=== PATIENT | female | born 1945 | race American Indian/Alaskan Native ===

== ENCOUNTER 2016-06-25 17:27 | Inpatient (IN) | payer MEDICARE, OTHER ==
[2016-06-25 17:53] LABS: CHLORIDE,CL 94 mmol/L (98-107); SODIUM,NA 132 mmol/L (136-145)
--- NOTE | 2016-06-25 18:38 | EDM.PDOC ---
ED HPI GENERAL MEDICAL PROBLEM - General Chief Complaint: General Stated Complaint: nausea, vomitting, diarrhea from chemotherapy Time Seen by Provider: 06/25/16 18:00 Source of Information: Reports: Patient History Limitations: Reports: No limitations - History of Present Illness INITIAL COMMENTS - FREE TEXT/NARRATIVE: The patient presents with complaint of nausea, vomiting, and diarrhea for the past few days following completion of recent chemotherapy regimen. She is being treated with chemotherapy for breast cancer and her oncologist is Dr. Machado from [facility] in [place]. She is receiving a regimen of 4 agents including Taxol and Herceptin and she is unsure of the remainder of the regimen. She has received a total of 6 cycles which began in early February of 2016. The initial diagnosis was made in January of 2016. She completing the course of chemotherapy with planned surgical resection and radiation following. She reports multiple episodes of vomiting daily until today and denies vomiting today. She has had multiple episodes of diarrhea including a few watery episodes today but denies hematochezia or melena. She has had a difficult time keeping fluid down. She called a nurse at [facility] who advised her to come in for evaluation. She denies fever, chills, bodyaches, cough, chest congestion, chest pain, shortness of breath, or dysuria. She has a few sores in her mouth from vomiting but denies other symptoms or complaints. - Related Data Allergies Allergy/AdvReac Type Severity Reaction Status Date / Time capsaicin Allergy Rash Verified 06/25/16 17:50 [From [employer] Pain Relieving Rub] menthol Allergy Rash Verified 06/25/16 17:50 [From [employer] Pain Relieving Rub] methyl nicotinate Allergy Rash Verified 06/25/16 17:50 [From [employer] Pain Relieving Rub] methyl salicylate Allergy Rash Verified 06/25/16 17:50 [From [employer] Pain Relieving Rub] Home Meds: Home Meds Albuterol [Ventolin HFA] 1 puff PO ASDIRECTED PRN 01/06/15 [History] Aspirin [Halfprin] 81 mg PO DAILY 01/06/15 [History] Calcium Carbonate/Vitamin D3 [Calcium 500 + Vit D 200 Caplet] 1 tab PO BID 01/06 [History] Gabapentin [Neurontin] 600 mg PO TID 01/06/15 [History] Hydrochlorothiazide 0.5 tab PO DAILY 01/06/15 [History] Hydrocodone/Acetaminophen [[place]ard 10-325] 1 tab PO QID PRN 01/06/15 [History] Lisinopril 1 tab PO DAILY 01/06/15 [History] Multivitamin with Minerals [Multivitamins with Minerals] 1 tab PO DAILY [History] Ranitidine [Zantac] 1 tab PO BID 01/06/15 [History] Sertraline [Zoloft] 1 tab PO QAM 01/06/15 [History] Simvastatin [Zocor] 1 tab PO DAILY 01/06/15 [History] amLODIPine [Norvasc] 1 tab PO DAILY 01/06/15 [History] metFORMIN [Glucophage] 500 mg PO BID 01/06/15 [History] Diphenoxylate HCl/Atropine [Lomotil] 2.5 - 5 mg PO QID PRN 06/12/16 [History] Past Medical History 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 ED EXAM, GENERAL - Physical Exam Exam: See Below Exam Limited By: No limitations General Appearance: alert, WD/WN, no apparent distress, other (Mildly ill- appearing. ) Eye Exam: bilateral eye: EOMI, normal inspection, PERRL Ears: normal external exam, normal canal, hearing grossly normal, normal TMs Ear Exam: bilateral ear: auricle normal, canal normal, TM normal Nose: normal inspection, normal mucosa, no blood Throat/Mouth: Normal inspection, Normal lips, Normal teeth, Normal gums, Normal oropharynx, Normal voice, No airway compromise Head: atraumatic, normocephalic Neck: normal inspection, supple, non-tender, full range of motion, other (No nuchal rigidity.). No: lymphadenopathy (L), lymphadenopathy (R), tender lateral , tender midline Respiratory/Chest: no respiratory distress, lungs clear, normal breath sounds, no accessory muscle use, chest non-tender Cardiovascular: normal peripheral pulses, regular rate, rhythm, no edema, no gallop, no murmur, no rub Peripheral Pulses: 2+: radial (L), radial (R), posterior tibial (L), posterior tibial (R) GI/Abdominal: normal bowel sounds, soft, non tender, no organomegaly, no distention Back Exam: normal inspection, full range of motion. No: CVA tenderness (L), CVA tenderness (R), paraspinal tenderness, vertebral tenderness Extremities: normal inspection, normal range of motion, non-tender, no pedal edema, normal capillary refill Neurological: alert, oriented, CN II-XII intact, normal cognition, normal gait, normal reflexes, no motor/sensory deficits Psychiatric: normal affect, normal mood Skin Exam: Warm, Dry, Intact, Normal color, No rash Lymphatic: no adenopathy Course - Vital Signs Last Recorded V/S: Last Vital Signs Temp 37.1 C 06/25/16 17:27 Pulse 110 H 06/25/16 17:27 Resp 12 06/25/16 17:27 BP 123/85 06/25/16 17:27 Pulse Ox 97 06/25/16 17:27 - Orders/Labs/Meds Orders: Active Orders 24 hr Category Date Time Status UA W/MICROSCOPIC [URIN] Stat Lab 06/25/16 17:31 Uncollected Labs: Laboratory Tests 06/25/16 06/25/16 Range/Units 17:30 17:30 WBC 12.1 H (4.0-10.2) K/uL RBC 3.85 (3.77-5.09) M/uL Hgb 12.3 (11.7-15.5) g/dL Hct 35.7 (34.0-46.0) % MCV 92.7 (84.0-98.0) fL MCH 31.9 (28.2-33.3) pg MCHC 34.5 (31.7-36.0) g/dL RDW 19.8 H (11.2-14.1) % Plt Count 135 L (150-350) K/uL Neut % (Auto) 73.1 (45.0-80.0) % Lymph % (Auto) 13.2 (10.0-50.0) % [place] % (Auto) 13.3 (2.0-14.0) % Eos % (Auto) 0.2 (0.0-5.0) % Baso % (Auto) 0.2 (0.0-2.0) % Neut # (Auto) 8.83 H (1.40-7.00) K/uL Lymph # (Auto) 1.59 (0.50-3.50) K/uL [place] # (Auto) 1.61 H (0.00-1.00) K/uL Eos # (Auto) 0.02 (0.00-0.50) K/uL Baso # (Auto) 0.02 (0.00-0.20) K/uL Sodium 132 L (136-145) mmol/L Potassium 2.9 L* (3.5-5.1) mmol/L Chloride 94 L (98-107) mmol/L Carbon Dioxide 27.5 (21.0-32.0) mmol/L BUN 11 (7-18) mg/dL Creatinine 0.74 (0.51-1.17) mg/dL Est Cr Clr Drug Dosing 62.83 mL/min Estimated GFR (MDRD) > 60 mL/min Glucose 140 H (74-106) mg/dL Calcium 8.8 (8.5-10.1) mg/dL Total Bilirubin 0.5 (0.2-1.0) mg/dL AST 28 (15-37) U/L ALT 23 (12-78) U/L Alkaline Phosphatase 92 (46-116) IU/L C-Reactive Protein 3.3 H (<=0.9) mg/dL Total Protein 6.9 (6.4-8.2) g/dL Albumin 3.7 (3.4-5.0) g/dL Departure - Departure Time of Disposition: 18:40 Disposition: Home, Self-Care 01 Clinical Impression: Adverse effect of chemotherapy, Dehydration, moderate, Hypokalemia, Hyponatremia Forms: ED Department Discharge - My Orders Last 24 Hours: My Active Orders 06/25/16 17:31 UA W/MICROSCOPIC [URIN] Stat - Assessment/Plan Last 24 Hours: My Active Orders 06/25/16 17:31 UA W/MICROSCOPIC [URIN] Stat Assessment:: Adverse effects of chemotherapy. Dehydration, moderate. Hypokalemia. Hyponatremia. Plan: 1. Admit to acute inpatient with telemetry. 2. NS 1 L bolus IV. 3. Zofran 4 mg IV and 4 mg IV every 6 hours as needed for nausea and vomiting. 4. Replete potassium with IV KCl 10 mEq rider bags x 5. 5. Recheck labs in AM. 6. JOSIE hose and Lovenox for DVT prophylaxis. 7. Incentive spirometry for pneumonia prophylaxis. Please use ER note for Admission History and Physical.
--- NOTE | 2016-06-25 20:20 | PCM.HPR ---
H & P Addendum review - H & P Addendum Review Date of Original H & P: 06/25/16 (Please see ER Note for Admission History and Physical including Assessment and Plan. ) Date Reviewed: 06/25/16 Patient was examined: No Changes
[2016-06-25] MEDS ORDERED: Potassium Chloride 10 MEQ in Premix Bag 4 BAG IV ONE (20:23)
[2016-06-25] MEDS ORDERED: Sodium Chloride 0.9% 500 ML IV SCH (20:30)
[2016-06-25] MEDS ORDERED: NS + KCl 20mEq/L 1,000 ML IV SCH (20:30)
[2016-06-25] MEDS: Enoxaparin 40 MG/0.4 ML Syringe SUBCUT SCH (21:10)
[2016-06-25] MEDS: Acetaminophen/HYDROcodone 325-10 MG Tab PO PRN (21:11)
[2016-06-25] MEDS: Simvastatin 20 MG Tab PO SCH (21:11)
[2016-06-25] MEDS: Atropine/Diphenoxylate 0.025-2.5 MG Tab PO PRN (21:12)
[2016-06-26] MEDS: Temazepam 15 MG Cap PO PRN ×2 (01:16→23:54)
[2016-06-26] MEDS: Ondansetron 4 MG/2 ML SDV IVPUSH PRN ×2 (07:52→13:04)
[2016-06-26] MEDS: Acetaminophen/HYDROcodone 325-10 MG Tab PO PRN ×3 (07:54→17:29)
[2016-06-26] MEDS: Enoxaparin 40 MG/0.4 ML Syringe SUBCUT SCH (07:56)
[2016-06-26] MEDS: metFORMIN 500 MG Tab PO SCH ×2 (07:58→17:30)
[2016-06-26] MEDS: Aspirin 81 MG Tab.EC PO SCH (07:58)
[2016-06-26] MEDS: Famotidine 20 MG Tab PO SCH ×2 (07:58→17:30)
[2016-06-26] MEDS: Gabapentin 300 MG Cap PO SCH ×3 (07:59→17:30)
[2016-06-26] MEDS: Hydrochlorothiazide 25 MG Tab PO SCH (07:59)
[2016-06-26] MEDS: Sertraline 50 MG Tab PO SCH (08:00)
[2016-06-26] MEDS: Atropine/Diphenoxylate 0.025-2.5 MG Tab PO PRN ×3 (08:00→20:09)
[2016-06-26] MEDS: amLODIPine 5 MG Tab PO SCH ×2 (08:01→09:01)
[2016-06-26] MEDS: Lisinopril 5 MG Tab PO SCH ×2 (08:01→09:01)
[2016-06-26 08:42] LABS: CHLORIDE,CL 100 mmol/L (98-107); SODIUM,NA 135 mmol/L (136-145)
[2016-06-26] MEDS: Simvastatin 20 MG Tab PO SCH (09:27)
[2016-06-26] MEDS: POTASSIUM CHLORIDE IV SCH ×5 (12:48→17:24)
[2016-06-26] MEDS: Sodium Chloride 0.9% 1,000 ML IV SCH ×2 (12:48→21:14)
--- NOTE | 2016-06-26 12:55 | PCM.PN ---
- General Info Date of Service: 06/26/16 Admission Dx/Problem (Free Text): Adverse reaction to neoadjuvant chemotherapy for Right Breast Cancer. Dehydration, moderate. Hypokalemia. Hypocalcemia. Subjective Update: The patient reports resolution of nausea and vomiting. She has been able to eat soup and an apricot and is tolerating oral liquids. Feels weakness and lethargy have improved as well. She continues to have watery diarrhea but denies hematochezia and melena. Denies other symptoms or complaints currently. - Review of Systems General: Reports: Weakness (Improved significantly), Fatigue (Improved significantly from admission.), Appetite HEENT: Reports: no symptoms Pulmonary: Reports: no symptoms Cardiovascular: Reports: No Symptoms Gastrointestinal: Reports: Diarrhea Genitourinary: Reports: no symptoms Musculoskeletal: Reports: no symptoms Skin: Reports: no symptoms Neurological: Reports: No Symptoms - Patient Data Vitals - most recent: Last Vital Signs Temp 36.7 C 06/26/16 08:00 Pulse 106 H 06/26/16 08:00 Resp 17 06/26/16 08:00 BP 109/73 06/26/16 08:00 Pulse Ox 96 06/26/16 08:00 Weight - most recent: 63.248 kg I&O - last 24 hours: Intake & Output 06/25/16 06/26/16 06/26/16 22:59 06:59 14:59 Intake Total 1358 2040 Output Total 100 350 Balance -100 1008 2040 Lab Results last 24 hrs: Laboratory Results - last 24 hr 06/25/16 06/26/16 06/26/16 Range/Units 21:00 07:45 07:45 WBC 10.2 (4.0-10.2) K/uL RBC 3.63 L (3.77-5.09) M/uL Hgb 11.6 L (11.7-15.5) g/dL Hct 34.0 (34.0-46.0) % MCV 93.7 (84.0-98.0) fL MCH 32.0 (28.2-33.3) pg MCHC 34.1 (31.7-36.0) g/dL RDW 19.9 H (11.2-14.1) % Plt Count 139 L (150-350) K/uL Neut % (Auto) 73.5 (45.0-80.0) % Lymph % (Auto) 14.8 (10.0-50.0) % [place] % (Auto) 11.4 (2.0-14.0) % Eos % (Auto) 0.1 (0.0-5.0) % Baso % (Auto) 0.2 (0.0-2.0) % Neut # (Auto) 7.51 H (1.40-7.00) K/uL Lymph # (Auto) 1.51 (0.50-3.50) K/uL [place] # (Auto) 1.16 H (0.00-1.00) K/uL Eos # (Auto) 0.01 (0.00-0.50) K/uL Baso # (Auto) 0.02 (0.00-0.20) K/uL Sodium 135 L (136-145) mmol/L Potassium 3.1 L (3.5-5.1) mmol/L Chloride 100 (98-107) mmol/L Carbon Dioxide 26.9 (21.0-32.0) mmol/L BUN 7 (7-18) mg/dL Creatinine 0.58 (0.51-1.17) mg/dL Est Cr Clr Drug Dosing 80.16 mL/min Estimated GFR (MDRD) > 60 mL/min Glucose 132 H (74-106) mg/dL Calcium 8.2 L (8.5-10.1) mg/dL Total Bilirubin 0.5 (0.2-1.0) mg/dL AST 28 (15-37) U/L ALT 21 (12-78) U/L Alkaline Phosphatase 81 (46-116) IU/L Total Protein 6.3 L (6.4-8.2) g/dL Albumin 3.4 (3.4-5.0) g/dL Specimen Type Urincc Urine Color Yellow Urine Appearance Clear Urine pH 6.0 (5.0-9.0) Ur Specific [place] 1.010 (1.005-1.030) Urine Protein Negative (NEGATIVE) mg/dL Urine Glucose (UA) Negative (NEGATIVE) mg/dL Urine Ketones Negative (NEGATIVE) mg/dL Urine Occult Blood Negative (NEGATIVE) Urine Nitrite Negative (NEGATIVE) Urine Bilirubin Negative (NEGATIVE) Urine Urobilinogen 0.2 (0.2-1.0) E.U./dL Ur Leukocyte Esterase Negative (NEGATIVE) Urine RBC 0-5 /HPF Urine WBC 0-5 /HPF Ur Epithelial Cells Few /LPF Urine Bacteria Few (NONE TO FEW) /HPF Med Orders - Current: Current Medications Hydrocodone Bitart/Acetaminophen (Amado 325-10 Mg) 1 tab PO QID PRN PRN Reason: Pain (moderate 4-6) Last Admin: 06/26/16 07:54 Dose: 1 tab Aspirin (Halfprin) 81 mg PO DAILY [facility] Last Admin: 06/26/16 07:58 Dose: 81 mg Diphenoxylate HCl/Atropine (Lomotil 0.025-2.5 Mg) 0 tab PO QID PRN PRN Reason: Diarrhea Last Admin: 06/26/16 08:00 Dose: 1 tab Enoxaparin Sodium (Lovenox) 40 mg SUBCUT DAILY [facility] Last Admin: 06/26/16 07:56 Dose: 40 mg Famotidine (Pepcid) 20 mg PO BIDAC [facility] Last Admin: 06/26/16 07:58 Dose: 20 mg Gabapentin (Neurontin) 600 mg PO TID [facility] Last Admin: 06/26/16 12:48 Dose: 600 mg Hydrochlorothiazide (Hydrochlorothiazide) 12.5 mg PO DAILY [facility] Last Admin: 06/26/16 07:59 Dose: 12.5 mg Sodium Chloride (Normal Saline) 500 mls @ 100 mls/hr IV ASDIRECTED [facility] Last Admin: 06/25/16 21:11 Dose: 100 mls/hr Potassium Chloride 10 meq/ (Premix) 50 mls @ 50 mls/hr IV Q1H [facility] Stop: 06/26/16 16:37 Last Admin: 06/26/16 12:48 Dose: 50 mls/hr Sodium Chloride (Normal Saline) 1,000 mls @ 100 mls/hr IV ASDIRECTED [facility] Last Admin: 06/26/16 12:48 Dose: 100 mls/hr Calcium Gluconate 1 gm/ Sodium (Chloride) 110 mls @ 100 mls/hr IV ONETIME ONE Stop: 06/26/16 19:05 Metformin HCl (Glucophage) 500 mg PO BIDMEALS [facility] Last Admin: 06/26/16 07:58 Dose: 500 mg Ondansetron HCl (Zofran) 4 mg IVPUSH Q6H PRN PRN Reason: Nausea/Vomiting Last Admin: 06/26/16 07:52 Dose: 4 mg Sertraline HCl (Zoloft) 50 mg PO QAM [facility] Last Admin: 06/26/16 08:00 Dose: 50 mg Simvastatin (Zocor) 20 mg PO BEDTIME [facility] Temazepam (Restoril) 15 mg PO BEDTIME PRN PRN Reason: Insomnia Last Admin: 06/26/16 01:16 Dose: 15 mg Discontinued Medications Amlodipine Besylate (Norvasc) 5 mg PO DAILY [facility] Last Admin: 06/26/16 09:01 Dose: Not Given Potassium Chloride 10 meq/ (Premix) 50 mls @ 50 mls/hr IV ONETIME ONE Stop: 06/25/16 21:22 Last Admin: 06/25/16 21:10 Dose: 50 mls/hr Potassium Chloride/Sodium Chloride (Normal Saline With 20 Meq Kcl) 1,000 mls @ 100 mls/hr IV ASDIRECTED [facility] Last Admin: 06/26/16 02:32 Dose: 100 mls/hr Lisinopril (Prinivil) 2.5 mg PO DAILY [facility] Last Admin: 06/26/16 09:01 Dose: Not Given Simvastatin (Zocor) 20 mg PO DAILY [facility] Last Admin: 06/26/16 09:27 Dose: Not Given - Exam General: alert, oriented HEENT: Pupils equal, Pupils reactive, EOMI, Mucous membr. moist/pink Neck: supple Lungs: Clear to auscultation, Normal respiratory effort Cardiovascular: Regular Rate, Regular Rhythm Abdomen: bowel sounds present, soft, no tenderness, no distension Back Exam: normal inspection, full range of motion. No: CVA tenderness (L), CVA tenderness (R), paraspinal tenderness, vertebral tenderness Extremities: no edema, normal pulses, no tenderness/swelling, no clubbing, no cyanosis Skin: warm, dry, intact Wound/Incisions: healing well Neurological: no new focal deficit Psy/Mental Status: alert, normal affect, normal mood - Problem List & Annotations (1) Adverse effect of chemotherapy SNOMED Code(s): 535402119 Code(s): T45.1X5A - ADVERSE EFFECT OF ANTINEOPLASTIC AND IMMUNOSUP DRUGS, INIT Status: Acute Priority: High Current Visit: Yes Annotation/Comment: : Nausea, Vomiting, Diarrhea, Dehydration, Hypokalemia, Hyponatremia, Hypocalcemia. Address as documented below. (2) Dehydration, moderate SNOMED Code(s): 4871046462955 Code(s): E86.0 - DEHYDRATION Status: Acute Priority: High Current Visit : Yes Annotation/Comment:: Improved signficantly with IV hydration and tolerating oral liquids. (3) Hypokalemia SNOMED Code(s): 08223060 Code(s): E87.6 - HYPOKALEMIA Status: Acute Priority: High Current Visit : Yes Annotation/Comment:: Persistent hypokalemia. Will require IV repeletion of 6 bags of KCl 10 mEq bags today. Will recheck along with magnesium and phosphorus levels in AM. (4) Hyponatremia SNOMED Code(s): 44235783 Code(s): E87.1 - HYPO-OSMOLALITY AND HYPONATREMIA Status: Acute Current Visit: Yes Annotation/Comment:: Improved since admission with NS IV. (5) Hypocalcemia SNOMED Code(s): 2281595 Code(s): E83.51 - HYPOCALCEMIA Status: Acute Priority: High Current Visit: Yes Annotation/Comment:: Replete with IV calcium gluconate today. Recheck in AM. - Problem List Review Problem List Initiated/Reviewed/Updated: Yes - My Orders Last 24 Hours: My Active Orders 06/25/16 20:20 Admission Status [Patient Status] [ADT] Routine 06/25/16 20:21 Vital Signs [RC] PER UNIT ROUTINE 06/25/16 20:22 Activity as Tolerated [RC] .Routine Out of Bed [RC] QID Shower [June Shower] [RC] DAILY 06/25/16 20:25 Ondansetron [Zofran] 4 mg IVPUSH Q6H PRN 06/25/16 20:26 Cardiac Monitoring [RC] Q2HR 06/25/16 20:27 Antiembolic Devices [RC] PER UNIT ROUTINE Notify Provider Vital Signs [RC] 08,20 Antiembolic Hose [OM.PC] Routine Sequential Compression Device [OM.PC] Routine 06/25/16 20:28 Incentive Spirometry [RT Incentive Spirometry] [RC] ASDIRECTED Acetaminophen/HYDROcodone [Amado 325-10 MG] 1 tab PO QID PRN Atropine/Diphenoxylate [Lomotil 0.025-2.5 MG] 0 tab PO QID PRN 06/25/16 20:30 Enoxaparin [Lovenox] 40 mg SUBCUT DAILY Sodium Chloride 0.9% [Normal Saline] 500 ml IV ASDIRECTED 06/25/16 Dinner Regular Diet [DIET] 06/26/16 00:49 Temazepam [Restoril] 15 mg PO BEDTIME PRN 06/26/16 07:30 Famotidine [Pepcid] 20 mg PO BIDAC metFORMIN [Glucophage] 500 mg PO BIDMEALS 06/26/16 08:00 Aspirin [Halfprin] 81 mg PO DAILY Gabapentin [Neurontin] 600 mg PO TID Hydrochlorothiazide 12.5 mg PO DAILY Sertraline [Zoloft] 50 mg PO QAM 06/26/16 11:33 Code Status [Resuscitation Status] Routine 06/26/16 11:38 Potassium Chloride [KCl 10 MEQ in Water 50 ML] 10 meq Premix Bag 5 bag IV Q1H 06/26/16 11:45 Sodium Chloride 0.9% [Normal Saline] 1,000 ml IV ASDIRECTED 06/26/16 18:00 Calcium Gluconate 1 gm Sodium Chloride 0.9% [Normal Saline] 100 ml IV ONETIME 06/26/16 20:00 Simvastatin [Zocor] 20 mg PO BEDTIME 06/27/16 07:00 CBC WITH AUTO DIFF [HEME] Routine COMPREHENSIVE METABOLIC PN,CMP [CHEM] Routine MAGNESIUM [CHEM] Routine PHOSPHORUS [CHEM] Routine - Plan Plan:: 1. Plan as above. 2. JOSIE hose/SCD's and Lovenox for DVT prophylaxis. 3. Incentive spirometer for pneumonia prophylaxis.
[2016-06-26] MEDS ORDERED: Sodium Chloride 0.9% 10 ML Syringe FLUSH PRN (13:03)
[2016-06-26] MEDS ORDERED: Calcium Gluconate 1 GM in Sodium Chloride 0.9% 100 ML IV ONE (18:00)
[2016-06-26] MEDS ORDERED: Simvastatin 20 MG Tab PO SCH (20:00)
[2016-06-27] MEDS: metFORMIN 500 MG Tab PO SCH (07:36)
[2016-06-27] MEDS: Aspirin 81 MG Tab.EC PO SCH (07:37)
[2016-06-27] MEDS: Hydrochlorothiazide 25 MG Tab PO SCH (07:37)
[2016-06-27] MEDS: Famotidine 20 MG Tab PO SCH (07:37)
[2016-06-27] MEDS: Sertraline 50 MG Tab PO SCH (07:38)
[2016-06-27] MEDS: Enoxaparin 40 MG/0.4 ML Syringe SUBCUT SCH (07:38)
[2016-06-27] MEDS: Atropine/Diphenoxylate 0.025-2.5 MG Tab PO PRN ×2 (07:42→11:31)
[2016-06-27] MEDS: Gabapentin 300 MG Cap PO SCH ×2 (07:42→11:30)
[2016-06-27] MEDS: Sodium Chloride 0.9% 1,000 ML IV SCH (07:46)
[2016-06-27 08:21] LABS: CHLORIDE,CL 104 mmol/L (98-107); SODIUM,NA 137 mmol/L (136-145)
[2016-06-27] MEDS ORDERED: Potassium Chloride 20 MEQ Tab.ER PO ONE (12:22)
[2016-06-27 12:42] VITALS: BP 116/77
--- NOTE | 2016-06-27 12:42 | PCM.DCSUM1 ---
Discharge Summary - Hospital Course Free Text/Narrative:: The patient was admitted on 06/25/16 with adverse effects of chemotherapy including nausea, vomiting, diarrhea, hyponatremia, and hypokalemia. IV fluid was given in boluses and maintenance for dehydration. She was given multiple IV boluses of KCl and KCl in maintenance fluids and still remains hypokalemic. Hyponatremia and hypocalcemia resolved. She now has mild hypoalbuminemia as well. The patient feels nauseated and is still having up to 5 episodes of watery diarrhea daily but denies hematochezia and melena. This has been a routine side effect of her chemotherapy that has been difficult to control and she has not been on antibiotics recently. She denies other symptoms or complaints. She desires discharge to home and states she feels better with IV fluids. She will resume her home prescriptions for Lomotil and Zofran as prescribed. She will be discharge with KCl 20 mEq ER tabs PO BID. She will followup with PCP this week to recheck electrolytes. She will keep followup appointment with oncology on 07/08/2016. - Discharge Data Discharge Date: 06/27/16 Discharge Disposition: Home, Self-Care 01 Condition: Good - Discharge Diagnosis/Problem(s) (1) Adverse effect of chemotherapy SNOMED Code(s): 703534922 ICD Code: T45.1X5A - ADVERSE EFFECT OF ANTINEOPLASTIC AND IMMUNOSUP DRUGS, INIT Status: Acute Priority: High Current Visit: Yes Problem Details: Nausea and Diarrhea currently. Vomiting and Dehydration have resolved. (2) Hypokalemia SNOMED Code(s): 20700941 ICD Code: E87.6 - HYPOKALEMIA Status: Acute Priority: High Current Visit: Yes Problem Details: Persistent hypokalemia. Will dose with KCl 40 mEq PO today and discharge on 20 mEq PO BID daily. (3) Hypoalbuminemia SNOMED Code(s): 360322084 ICD Code: E88.09 - OTH DISORDERS OF PLASMA-PROTEIN METABOLISM, NEC Status: Acute Priority: High Current Visit: Yes Problem Details: Advance diet as able and as tolerated. (4) Dehydration, moderate SNOMED Code(s): 3647808582016 ICD Code: E86.0 - DEHYDRATION Status: Resolved Current Visit: Yes Problem Details: Resolved with IV hydration. (5) Hyponatremia SNOMED Code(s): 16395347 ICD Code: E87.1 - HYPO-OSMOLALITY AND HYPONATREMIA Status: Resolved Current Visit: Yes Problem Details: Resolved. (6) Hypocalcemia SNOMED Code(s): 2794967 ICD Code: E83.51 - HYPOCALCEMIA Status: Resolved Current Visit: Yes Problem Details: Resolved. - Patient Instructions Diet: Usual Diet as Tolerated (Advance diet as tolerated.) Activity: As Tolerated Driving: Do Not Drive (Discuss with Oncology and PCP prior to driving.) Showering/Bathing: May Shower Notify Provider of: Fever, Nausea and/or Vomiting (Refractrory) - Discharge Plan Prescriptions/Med Rec: Potassium Chloride [Klor-Con M20] 20 meq PO BID #60 tab.er Home Medications: Home Meds Albuterol [Ventolin HFA] 1 puff PO ASDIRECTED PRN 01/06/15 [History] Aspirin [Halfprin] 81 mg PO DAILY 01/06/15 [History] Calcium Carbonate/Vitamin D3 [Calcium 500 + Vit D 200 Caplet] 1 tab PO BID 01/06 [History] Gabapentin [Neurontin] 600 mg PO TID 01/06/15 [History] Hydrochlorothiazide 0.5 tab PO DAILY 01/06/15 [History] Hydrocodone/Acetaminophen [[place] 10-325] 1 tab PO QID PRN 01/06/15 [History] Multivitamin with Minerals [Multivitamins with Minerals] 1 tab PO DAILY [History] Ranitidine [Zantac] 1 tab PO BID 01/06/15 [History] Sertraline [Zoloft] 1 tab PO QAM 01/06/15 [History] Simvastatin [Zocor] 1 tab PO BEDTIME 01/06/15 [History] metFORMIN [Glucophage] 500 mg PO BID 01/06/15 [History] Diphenoxylate HCl/Atropine [Lomotil] 2.5 - 5 mg PO QID PRN 06/12/16 [History] Potassium Chloride [Klor-Con M20] 20 meq PO BID #60 tab.er 06/27/16 [Rx] Patient Handouts: Chemotherapy, Hypokalemia Forms: ED Department Discharge Referrals: PCP,Unknown [Primary Care Provider] - - General Info Date of Service: 06/27/16 Admission Dx/Problem (Free Text: Adverse reaction to neoadjuvant chemotherapy for Right Breast Cancer. Dehydration, moderate. Hypokalemia. Hypocalcemia. Subjective Update: As above. - Review of Systems General: Reports: Weakness (Improved from admission.). Denies: Appetite HEENT: Reports: no symptoms Pulmonary: Reports: no symptoms Cardiovascular: Reports: No Symptoms Gastrointestinal: Reports: Diarrhea (Watery), Nausea. Denies: Abdominal pain, Hematochezia, Melena, Vomiting Genitourinary: Reports: no symptoms Musculoskeletal: Reports: no symptoms Skin: Reports: no symptoms Neurological: Reports: No Symptoms Psychiatric: Reports: no symptoms - Patient Data Vitals - Most Recent: Last Vital Signs Temp 36.7 C 06/27/16 08:00 Pulse 93 06/27/16 08:00 Resp 17 06/27/16 08:00 BP 122/73 06/27/16 08:00 Pulse Ox 99 06/27/16 08:00 Weight - Most Recent: 63.248 kg I&O - Last 24 hours: Intake & Output 06/26/16 06/27/16 06/27/16 22:59 06:59 14:59 Intake Total 1033 1330 600 Output Total 1000 Balance 1033 330 600 Lab Results - Last 24 hrs: Laboratory Results - last 24 hr 06/27/16 06/27/16 Range/Units 07:40 07:40 WBC 9.6 (4.0-10.2) K/uL RBC 3.22 L (3.77-5.09) M/uL Hgb 10.4 L (11.7-15.5) g/dL Hct 31.6 L (34.0-46.0) % MCV 98.1 H D (84.0-98.0) fL MCH 32.3 (28.2-33.3) pg MCHC 32.9 (31.7-36.0) g/dL RDW 20.3 H (11.2-14.1) % Plt Count 120 L (150-350) K/uL Neut % (Auto) 78.9 (45.0-80.0) % Lymph % (Auto) 13.0 (10.0-50.0) % Ocean % (Auto) 7.9 (2.0-14.0) % Eos % (Auto) 0.1 (0.0-5.0) % Baso % (Auto) 0.1 (0.0-2.0) % Neut # (Auto) 7.57 H (1.40-7.00) K/uL Lymph # (Auto) 1.25 (0.50-3.50) K/uL Ocean # (Auto) 0.76 (0.00-1.00) K/uL Eos # (Auto) 0.01 (0.00-0.50) K/uL Baso # (Auto) 0.01 (0.00-0.20) K/uL Sodium 137 (136-145) mmol/L Potassium 3.2 L (3.5-5.1) mmol/L Chloride 104 (98-107) mmol/L Carbon Dioxide 25.6 (21.0-32.0) mmol/L BUN 4 L (7-18) mg/dL Creatinine 0.64 (0.51-1.17) mg/dL Est Cr Clr Drug Dosing 72.65 mL/min Estimated GFR (MDRD) > 60 mL/min Glucose 113 H (74-106) mg/dL Calcium 7.7 L (8.5-10.1) mg/dL Phosphorus 3.1 (2.6-4.7) mg/dL Magnesium 0.8 L (1.8-2.4) mg/dL Total Bilirubin 0.3 (0.2-1.0) mg/dL AST 24 (15-37) U/L ALT 17 (12-78) U/L Alkaline Phosphatase 75 (46-116) IU/L Total Protein 5.5 L (6.4-8.2) g/dL Albumin 3.0 L (3.4-5.0) g/dL Med Orders - Current: Current Medications Hydrocodone Bitart/Acetaminophen ([place] 325-10 Mg) 1 tab PO QID PRN PRN Reason: Pain (moderate 4-6) Last Admin: 06/26/16 17:29 Dose: 1 tab Aspirin (Halfprin) 81 mg PO DAILY [facility] Last Admin: 06/27/16 07:37 Dose: 81 mg Diphenoxylate HCl/Atropine (Lomotil 0.025-2.5 Mg) 0 tab PO QID PRN PRN Reason: Diarrhea Last Admin: 06/27/16 11:31 Dose: 1 tab Enoxaparin Sodium (Lovenox) 40 mg SUBCUT DAILY [facility] Last Admin: 06/27/16 07:38 Dose: 40 mg Famotidine (Pepcid) 20 mg PO BIDAC [facility] Last Admin: 06/27/16 07:37 Dose: 20 mg Gabapentin (Neurontin) 600 mg PO TID [facility] Last Admin: 06/27/16 11:30 Dose: 600 mg Heparin Sodium (Porcine) (Heparin Lock Flush 100 Units/Ml Syringe) 500 units FLUSH ASDIRECTED PRN PRN Reason: after port use Hydrochlorothiazide (Hydrochlorothiazide) 12.5 mg PO DAILY [facility] Last Admin: 06/27/16 07:37 Dose: 12.5 mg Sodium Chloride (Normal Saline) 500 mls @ 100 mls/hr IV ASDIRECTED [facility] Last Admin: 06/25/16 21:11 Dose: 100 mls/hr Sodium Chloride (Normal Saline) 1,000 mls @ 100 mls/hr IV ASDIRECTED [facility] Last Admin: 06/27/16 07:46 Dose: 100 mls/hr Metformin HCl (Glucophage) 500 mg PO BIDMEALS [facility] Last Admin: 06/27/16 07:36 Dose: 500 mg Ondansetron HCl (Zofran) 4 mg IVPUSH Q6H PRN PRN Reason: Nausea/Vomiting Last Admin: 06/26/16 13:04 Dose: 4 mg Potassium Chloride (Klor-Con M20) 40 meq PO ONETIME ONE Stop: 06/27/16 12:23 Sertraline HCl (Zoloft) 50 mg PO QAM [facility] Last Admin: 06/27/16 07:38 Dose: 50 mg Simvastatin (Zocor) 20 mg PO BEDTIME [facility] Last Admin: 06/26/16 20:03 Dose: 20 mg Sodium Chloride (Saline Flush) 10 ml FLUSH ASDIRECTED PRN PRN Reason: Keep Vein Open Temazepam (Restoril) 15 mg PO BEDTIME PRN PRN Reason: Insomnia Last Admin: 06/26/16 23:54 Dose: 15 mg Discontinued Medications Amlodipine Besylate (Norvasc) 5 mg PO DAILY [facility] Last Admin: 06/26/16 09:01 Dose: Not Given Heparin Sodium (Porcine) (Heparin Lock Flush 100 Units/Ml Syringe) 300 units FLUSH ASDIRECTED PRN PRN Reason: after port use Potassium Chloride 10 meq/ (Premix) 50 mls @ 50 mls/hr IV ONETIME ONE Stop: 06/25/16 21:22 Last Admin: 06/25/16 21:10 Dose: 50 mls/hr Potassium Chloride/Sodium Chloride (Normal Saline With 20 Meq Kcl) 1,000 mls @ 100 mls/hr IV ASDIRECTED [facility] Last Admin: 06/26/16 02:32 Dose: 100 mls/hr Potassium Chloride 10 meq/ (Premix) 50 mls @ 50 mls/hr IV Q1H [facility] Stop: 06/26/16 16:37 Last Admin: 06/26/16 17:24 Dose: 50 mls/hr Calcium Gluconate 1 gm/ Sodium (Chloride) 110 mls @ 100 mls/hr IV ONETIME ONE Stop: 06/26/16 19:05 Last Admin: 06/26/16 20:04 Dose: 100 mls/hr Lisinopril (Prinivil) 2.5 mg PO DAILY [facility] Last Admin: 06/26/16 09:01 Dose: Not Given Simvastatin (Zocor) 20 mg PO DAILY [facility] Last Admin: 06/26/16 09:27 Dose: Not Given - Exam General: Reports: alert, oriented HEENT: Reports: Pupils equal, Pupils reactive, EOMI, Mucous membr. moist/pink Lungs: Reports: Clear to auscultation, Normal respiratory effort. Denies: Decreased breath sounds, Crackles, Rales, Rhonchi, Rub, Wheezing Cardiovascular: Reports: Regular Rate, Regular Rhythm, No Murmurs. Denies: Gallops, Rubs Abdomen: Reports: bowel sounds present, soft, no tenderness, no distension. Denies: rebound, guarding Back Exam: Reports: normal inspection, full range of motion. Denies: CVA tenderness (L), CVA tenderness (R), paraspinal tenderness, vertebral tenderness Extremities: Reports: no edema, normal pulses, no tenderness/swelling, no clubbing, no cyanosis, other (Malik sign absent bilaterally.) Skin: Reports: warm, dry, intact Wound/Incisions: Reports: healing well Neurological: Reports: no new focal deficit Psy/Mental Status: Reports: alert, normal affect, normal mood *Q Meaningful Use (DIS) - VTE *Q VTE Criteria *Q: - Stroke *Q Stroke Criteria *Q: - AMI *Q AMI Criteria *Q:
[2016-06-27] MEDS: Acetaminophen/HYDROcodone 325-10 MG Tab PO PRN (13:20)
== END 2016-06-27 14:28 | disposition home or self-care (01) | DRG 392 ==
LOC: LL.ED 17:27 → UNDOADMIN 18:20 → LL.MS 18:20 → UNDODISIN 06-27 14:28
PROVIDERS: ADMIT Surgery; ATTEND Surgery
DX: R11.2 Nausea with vomiting, unspecified (principal); E87.1 Hypo-osmolality and hyponatremia; T45.1X5A Adverse effect of antineoplastic and immunosuppressive drugs, initial encounter; C50.411 Malignant neoplasm of upper-outer quadrant of right female breast; Z17.1 Estrogen receptor negative status [ER-]; R19.7 Diarrhea, unspecified; E87.6 Hypokalemia; E88.09 Other disorders of plasma-protein metabolism, not elsewhere classified; E86.0 Dehydration; E83.51 Hypocalcemia
CPT/HCPCS: 36415; 80053; 81001; 83735; 84100; 85025; 86140; 99285; A9270-GY; J0610; J1642; J1650; J2405; J3480; J7030; J7040; J7050